=== PATIENT | female | born 1940 | race Caucasian/White ===

== ENCOUNTER 2016-09-24 09:57 | Day surgery (SDC) | payer OTHER ==
[~2016-09-24] VITALS: Ht 149.9 cm; Wt 92.9 kg
[~2016-09-24 09:57] MED LIST: AMARYL1 MG PO; HYZAAR 100-21 TABLET PO; LIPITOR20 MG PO; LO-DOSE ASPIRIN81 M2 PO; LOPRESSOR100 M1 PO; NORVASC10 MG PO; ZOLOFT50 MG PO
[2016-09-24 11:14] LABS: POINT-OF-CARE METER ID UU14174212
[2016-09-24 11:37] VITALS: BP 148/92
[2016-09-24 15:47] VITALS: BP 177/75
[2016-09-24 16:13] VITALS: BP 149/63
== END 2016-09-24 16:22 | disposition home or self-care (01) ==
LOC: SDC 09:57
PROVIDERS: Specialist
DX: H43.12 Vitreous hemorrhage, left eye (principal); E11.3592 Type 2 diabetes mellitus with proliferative diabetic retinopathy without macular edema, left eye; I10 Essential (primary) hypertension; E78.5 Hyperlipidemia, unspecified; Z79.82 Long term (current) use of aspirin
CPT/HCPCS: 82948; J0690; J1100; J2405; J3010